=== PATIENT | male | born 1940 | race Caucasian/White ===

== ENCOUNTER 2018-08-30 16:25 | Emergency (ER) | payer OTHER, MEDICAID ==
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
[2018-08-30 18:28] VITALS: BP 139/87
== END 2018-08-30 18:26 | disposition home or self-care (01) ==
DX: S39.012A Strain of muscle, fascia and tendon of lower back, initial encounter (principal); I10 Essential (primary) hypertension; I25.10 Atherosclerotic heart disease of native coronary artery without angina pectoris; E78.00 Pure hypercholesterolemia, unspecified; N40.0 Benign prostatic hyperplasia without lower urinary tract symptoms; V18.4XXA Pedal cycle driver injured in noncollision transport accident in traffic accident, initial encounter; Y92.411 Interstate highway as the place of occurrence of the external cause; Y93.9 Activity, unspecified; Y99.9 Unspecified external cause status

== ENCOUNTER → 2018-09-11 | Outpatient (CLI) | payer OTHER, MEDICAID | LOC: FIMAGING 13:45 | PROVIDERS: ATTEND Family Medicine | DX: M25.552 Pain in left hip (principal) ==

== ENCOUNTER → 2019-02-11 | Outpatient (CLI) | payer OTHER, MEDICAID | LOC: FIMAGING 16:34 ==

== ENCOUNTER → 2019-02-21 | Outpatient (CLI) | payer OTHER, MEDICAID | LOC: FIMAGING 18:45 ==